=== PATIENT | male | born 1935 | race African-American/Black ===

== ENCOUNTER 2016-09-15 03:56 | Inpatient (IN) | payer OTHER ==
[~2016-09-15] VITALS: Ht 180.3 cm; Wt 88.5 kg
[~2016-09-15 03:56] MED LIST: ASPIRIN81 M4; ATORVASTATIN CA80 M1 PO; ATORVASTATIN CA80 MG PO; FINASTERIDE5 M1 PO; FINASTERIDE5 MG PO; FISH OIL CONCEN1 SGL PO; HYZAAR 12.5 MG-1 TAB PO; K-DUR 20MEQ TA20 MEQ PO; LOSARTAN POTAS100 M1 PO; LOSARTAN-HCTZ 100-12 PO; MULTI VITAMINS1 TAB PO; NORVASC 10MG10 MG PO; NORVASC 5MG TAB5 MG PO; SIMVASTATIN20 MG PO; TAMSULOSIN HYD0.4 MG PO; TENORMIN 12.512.5 MG PO
[2016-09-15 13:10] VITALS: BP 130/88
--- NOTE | 2016-09-15 13:28 | Patient Discharge Instructions ---
Discharge Instructions General Discharge Information You were seen/treated for: carotid stenosis You had these procedures: carotid endarterectomy Watch for these problems: increased pain, increased redness or drainage of wound, increased weakness or slurring of speech Do not soak the wound: Yes No bath, but you may shower: Yes Other wound care: Keep incision clean and dry Diet Recommended Diet: Heart Healthy Activity Activity Self Limited: Yes Acute Coronary Syndrome Inclusion Criteria At DC or during hospital stay patient has or had the following: ACS DIAGNOSIS No Discharge Core Measures Meds if any: Prescribed or Continued at Discharge Meds if any: NOT Prescribed or Continued at Discharge Congestive Heart Failure Inclusion Criteria At DC or during hospital stay patient has or had the following: CHF DIAGNOSIS No Discharge Core Measures Meds if any: Prescribed or Continued at Discharge Meds if any: NOT Prescribed or Continued at Discharge Cerebrovascular accident Inclusion Criteria At DC or during hospital stay patient has or had the following: CVA/TIA Diagnosis No Discharge Core Measures Meds if any: Prescribed or Continued at Discharge Meds if any: NOT Prescribed or Continued at Discharge Venous thromboembolism Inclusion Criteria VTE Diagnosis No VTE Type NONE VTE Confirmed by (Test) NONE Discharge Core Measures - Per Current guidelines, there needs to be overlap - treatment for the first 5 days of Warfarin therapy. - If discharged on Warfarin prior to 5 days of - overlap therapy, the patient will need to be - assessed for post discharge needs including - *Post discharge parental anticoagulation - *Warfarin and/or parental anticoagulation education - *Follow up date to check INR post discharge At least 5 days overlap therapy as Inpatient No Meds if any: Prescribed or Continued at Discharge Note: Overlap Therapy is Warfarin and Anticoagulant Meds if any: NOT Prescribed or Continued at Discharge
--- NOTE | 2016-09-15 13:37 | PN- Vascular Surgery ---
Subjective Subjective: Post op check Awake, alert post op No complaints, pain well controlled Does not sense any decreased sensation or weakness Objective Vital Signs and I&Os VSS General: alert and oriented times three Chest: clear anteriorly bilaterally, RRR Abd: soft, good bs Ext: warm, no edema Neuro: 5/5 LEIGHANN all 4 extremities, positive sensate all 4 ext, no facial droop, no slurring of speech, tongue protrudes in midline Wound: dressed, dry, expected post op edema around incision - does not affect swallow Current Medications: Current Medications Sig/Tammie Start time Last Medication Dose Route Stop Time Status Admin Amlodipine Besylate 10 MG DAILY 09/16 1000 DC PO Amlodipine Besylate 10 MG DAILY 09/16 1000 UNVr PO Aspirin 325 MG DAILY 09/16 1000 DC PO Aspirin 325 MG DAILY 09/16 1000 UNVr PO Atorvastatin Calcium 80 MG 1700 09/16 1700 DC PO Atorvastatin Calcium 80 MG 1700 09/16 1700 UNVr PO Dextrose/Sodium 1,000 ML .Q20H 09/15 1345 UNVr Chloride IV Finasteride 5 MG DAILY 09/16 1000 DC PO Finasteride 5 MG DAILY 09/16 1000 UNVr PO Losartan Potassium 100 MG DAILY 09/16 1000 DC PO Losartan Potassium 100 MG DAILY 09/16 1000 UNVr PO Ondansetron HCl 4 MG Q6P PRN 09/15 1345 UNVr IV Oxycodone/ 1 TAB Q4P PRN 09/15 1345 UNVr Acetaminophen PO Oxycodone/ 2 TAB Q4P PRN 09/15 1345 UNVr Acetaminophen PO Potassium Chloride 20 MEQ DAILY 09/16 1000 DC PO Potassium Chloride 20 MEQ DAILY 09/16 1000 UNVr PO Promethazine HCl 12.5 MG Q6P PRN 09/15 1345 UNVr IV 09/22 1129 Assessment/Plan Assessment/Plan 81 yo male s/p L CEA Good post op course HH diet pain mgmt plan to dc home in am Core Measures/Miscellaneous Venous Thromboembolism VTE Risk Factors: Age > 40, Surgery VTE Contraindications: No Contraindications VTE Diagnosis: No Beta Flakito Is Beta Flakito a Home Med? No Antibiotics Is Patient on Antibiotics? No
[2016-09-15] MEDS ORDERED: TYLENOL EXTRA500 M2 PO (13:38)
--- NOTE | 2016-09-15 13:46 | Admission Core Measures ---
Admission Meds I reviewed the following Meds: Current Medications Sig/Tammie Start time Last Medication Dose Stop Time Status Admin Acetaminophen 500 MG Q6P PRN 09/15 1345 UNVr (Tylenol) Amlodipine Besylate 10 MG DAILY 09/16 1000 UNVr (Norvasc) Aspirin 325 MG DAILY 09/16 1000 UNVr (Aspirin) Atorvastatin Calcium 80 MG 1700 09/16 1700 UNVr (Lipitor) Dextrose/Sodium 1,000 ML .Q20H 09/15 1345 UNVr Chloride (D5W-1/2 Normal Saline 1000ML) Finasteride 5 MG DAILY 09/16 1000 UNVr (Proscar) Losartan Potassium 100 MG DAILY 09/16 1000 UNVr (Cozaar) Ondansetron HCl 4 MG Q6P PRN 09/15 1345 UNVr (Zofran) Oxycodone/ 1 TAB Q4P PRN 09/15 1345 UNVr Acetaminophen (Percocet) Oxycodone/ 2 TAB Q4P PRN 09/15 1345 UNVr Acetaminophen (Percocet) Potassium Chloride 20 MEQ DAILY 09/16 1000 UNVr (K-Dur) Promethazine HCl 12.5 MG Q6P PRN 09/15 1345 UNVr (Phenergen) 09/22 1129 Acute Coronary Syndrome Inclusion Criteria ACS Diagnosis No Inpatient Core Measures LDL Reminder: If No, please order W/I first 24hr of stay Congestive Heart Failure Inclusion Criteria CHF Diagnosis No Cerebrovascular accident Inclusion Criteria CVA/TIA Diagnosis No Inpatient Core Measures Bedside Swallow Eval Reminder: If BSE failed, place ST order Antithrombotic Reminder: Order Antithrombotic Medication by end of day 2 Antithrombotic Reminder: Document Reason Antithrombotic Not ordered by end of day 2 AFIB/Flutter Reminder: If Present, add to problem list AFIB/Flutter Reminder: Order Anticoag Medication for pts with AFIB/Flutter Atherosclerosis Reminder: If Present, add to problem list LDL Reminder: If No, please order W/I first 24hr of stay PT Order Reminder: If No, please order Venous thromboembolism Inpatient Core Measures VTE Risk Factors: Age > 40, Surgery No Mech VTE prophylaxis d/t No contraindications No VTE Pharm Prophylaxis d/t No contraindications Inclusion Criteria - Per Current guidelines, there needs to be overlap - treatment for the first 5 days of Warfarin therapy. - Parenteral Anticoagulation (IV or SC) needs to be - given along with Warfarin therapy. VTE Diagnosis No VTE Type NONE VTE Confirmed by (Test) NONE Problem List As ranked by this Provider includes Assessment & Plan 1. S/P carotid endarterectomy HOME MEDS Home Med List Amlodipine (Norvasc 10MG) 10 MG TAB 1 TAB PO DAILY HTN Aspirin 325 MG TAB 1 TAB PO DAILY HEART HEALTY (Reported) Atorvastatin Calcium 80 MG TABLET 1 TAB PO DAILY CHOLESTEROL (Reported) Finasteride 5 MG TABLET 1 TAB PO DAILY BPH (Reported) Losartan Potassium 100 MG TABLET 1 TAB PO DAILY HTN (Reported) POTASSIUM CHLORIDE (K-Dur) 20 MEQ TAB.ER.PRT 1 TAB PO DAILY SUPPLEMENT ( Reported)
--- NOTE | 2016-09-15 15:09 | Operative Report ---
Operative/Inv Procedure Report Surgery Date: 09/15/16 Name of Procedure: Left carotid thromboendarterectomy with bovine patch angioplasty Pre-Operative Diagnosis: High-grade asymptomatic left carotid stenosis Post-Operative Diagnosis: Same Estimated Blood Loss: less than 50ml Surgeon/Train Conductor: DEA MORALES,NASEEM JOHNSTON MD, JUAN (asst.) Anesthesia: general endotracheal tube Condition: Stable to PACU Operative Indication: 81-year-old male with ultrasound and CAT scan which demonstrates a high-grade left carotid stenosis. Risks benefits and alternatives were explained to the patient including bleeding stroke nerve injury and muscle weakness. He decided to proceed with intervention. Operative/Procedure Note Note: Patient brought to the operating room and laid supine on the table. A timeout was held accordance with hospital policy. Of note the patient was noted to have a high carotid bifurcation on ultrasound and CAT scan and an appropriate resident was not available for the case. Therefore an metallurgical laboratory assistant surgeon was required. Sharp dissection was carried down through subcutaneous tissue along the border of the sternocleidomastoid with a 15 blade and Bovie electrocautery. The tissue was dissected free. The carotid sheath was entered. The common, external and internal carotid artery were circumferentially controlled. Patient was given 5000 units of heparin. The blood pressure was kept elevated and the artery was opened and clamped. Excellent backbleeding was noted. An 11- blade and Valadez scissors were used to open the artery. A [place] elevator was used to remove the plaque. It was passed off the field. Debris was removed from the intima with ring forceps. Saline was used to irrigate the area. A bovine pericardial patch was then sewed on the anterior surface of the artery in a running circumferential manner. It was tied down with 6-0 Prolene. All occluding clamps were removed. Pulsatile flow was noted into the area. Good diastolic flow was noted. 2 interrupted Prolene sutures were used for hemostasis. Gelfoam and thrombin were placed on the wound and artery. 2 our 3-0 Vicryl sutures were used to close the deep tissue and platysma. The skin was closed with megan. He awoke from anesthesia neurologically intact. The sponge, needle and instrument counts were correct. The patient was transported to the recovery room.
[2016-09-16] VITALS: BP 158/100
[2016-09-16 05:00] LABS: ABSOLUTE BASOPHIL COUNT 0 /CUMM (0.0-0.2); ABSOLUTE EOSINOPHIL COUNT 0 /CUMM (0.0-0.7); ABSOLUTE LYMPH COUNT 1.7 /CUMM (1.2-3.4); ABSOLUTE MONOCYTE COUNT 0.6 /CUMM (0.10-0.60); BASOPHIL % 0.3 % (0.0-2.0); EOSINOPHIL % 0.2 % (0-5); HEMATOCRIT 42.7 % (42-52); MEAN CORPUSCULAR HGB 28.1 PG (27.0-31.0); MEAN CORPUSCULAR HGB CONC 33.3 G/DL (33.0-37.0); MEAN CORPUSCULAR VOLUME 84.6 FL (80.0-94.0); MEAN PLATELET VOLUME 8.3 FL (7.4-10.4); PLATELET COUNT 171 /CUMM (130-400); RED BLOOD CELL CT 5.05 /CUMM (4.70-6.10); WHITE BLOOD CELL COUNT 9.4 /CUMM (4.8-10.8)
[2016-09-16 05:05] LABS: GRANULOCYTE % 74.9 % (42.2-75.2)
--- NOTE | 2016-09-16 05:47 | PN- Vascular Surgery ---
Subjective Subjective: pod#1 s/p left cea runs of ventricular ectopy last evening repeat electrolyte panel revealed hypokalemia nad hypomagnesia decreased ectopy with iv repleation denies cp, sob, no n+v with diet or difficulty swallowing does c/o increasing hoarseness with phonation Objective Vital Signs and I&Os Vital Signs Date Time Temp Pulse Resp B/P Pulse O2 O2 Flow FiO2 Ox Delivery Rate 09/16 0400 93 Nasal 1.0L Cannula 09/16 0000 92 Nasal 1.0L Cannula 09/16 0000 98.5 106 17 158/100 92 Nasal 1.0L Cannula 09/15 2056 98 170/108 09/16 1999 96 Nasal 2.0L Cannula 09/15 1310 97 Nasal 3.0L Cannula 09/15 1310 97.6 84 20 130/88 97 Nasal 3.0L Cannula Intake & Output 09/16 0800 09/16 0000 09/15 1600 09/15 0800 09/15 0000 09/14 1600 Intake Total 1330 150 Output Total 725 750 Balance 605 -600 Intake, IV 300 150 Intake, Oral 1030 0 Number 0 0 Bowel Movements Output, Urine 725 750 Patient 195 lb Weight Physical Exam: cv: rrr lungs: clear abd: soft, +bs ext: warm distal cms intact drsg dry, expected non expanding hematoma Assessment/Plan Assessment/Plan vascular stable plan restart all home meds advance diet will d/w dr ledbetter d/c plans likely later today Core Measures/Miscellaneous Venous Thromboembolism VTE Risk Factors: Age > 40, Surgery VTE Contraindications: No Contraindications VTE Diagnosis: No VTE Type: NONE VTE Confirmed by (Test): NONE Beta Flakito Is Beta Flakito a Home Med? No Antibiotics Is Patient on Antibiotics? No
[2016-09-16 08:00] VITALS: BP 130/90
--- NOTE | 2016-09-16 08:08 | Event Note ---
Event Note Event Note: patient seen with Dr Murphy. Patient looks good advised for discharge this morning
--- NOTE | 2016-10-20 17:33 | Surgical Discharge Summary ---
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 Spouse Services at Home: None What is Your Primary Language? Singaporean Review of Systems: Patient denied complaint upon discharge. Physical Exam: Patient was a well-appearing male in no apparent distress. Incision was clean dry and intact upon discharge with no focal deficits. Hospital Course Course Attending Physician: VICKIE MALIN MD Primary Care Physician: PEGGY GRAY MD Hospital Course: 81-year-old male underwent an uncomplicated left carotid thromboendarterectomy. He tolerated the procedure well be discharged home on antiplatelet medication. He may follow up as an outpatient for suture and staple removal. Complications: NONE Allergies: Coded Allergies: NO KNOWN ALLERGIES (09/11/16) Disposition Summary Disposition Principal Diagnosis: Bilateral carotid stenosis Additional Diagnosis: None Discharge Disposition: home or self care Discharge Instructions General Discharge Information Code Status: Full Code Patient's Diet: Cardiac prudent Patient's Activity: No major restrictions. Patient advised not to drive until reevaluated for suture removal. Follow-Up Instructions/Appts: Follow-up in 1-2 weeks Medications at Discharge Discharge Medications: Continue taking these medications: POTASSIUM CHLORIDE (K-Dur) 20 MEQ TAB.ER.PRT 1 Tablet ORAL DAILY Qty = 270 Comments: TAKE 1 TABLET BY MOUTH 3 TIMES A DAY - SIG Obtained From Mariela Last Taken: 05/14/15 Time: 11:00 AM Aspirin (Aspirin*) 81 MG TAB.CHEW Comments: Last Taken: 09/16/16 Time: 929 Amlodipine (Norvasc 10MG) 10 MG TAB 1 Tablet ORAL DAILY Days = 30 Comments: Last Taken: 05/14/15 Time: 4:00 PM Atorvastatin Calcium (Atorvastatin Calcium) 80 MG TABLET 1 Tablet ORAL DAILY Instructions: NIGHTLY Comments: Last Taken: 09/16/16 Time: 0930 Losartan Potassium (Losartan Potassium) 100 MG TABLET 1 Tablet ORAL DAILY Comments: Last Taken: 09/16/16 Time: 929 Finasteride (Finasteride) 5 MG TABLET 1 Tablet ORAL DAILY Instructions: NIGHTLY Comments: Last Taken: 09/16/16 Time: 929 Start taking the following new medications: Acetaminophen (Tylenol Extra Strength) 500 MG TABLET 1 Tablet ORAL EVERY 8 HOURS as needed for pain Qty = 10 No Refills Attending MD Review Statement Attending Statement Attending MD Statement: examined this patient
== END 2016-09-16 10:07 | DRG 39 ==
LOC: ENRESERVDT → ENRESERVTM → SDA 03:56 → CRI 13:10
PROVIDERS: Nurse Practitioner; ADMIT Surgery Vascular Surgery
DX: I65.22 Occlusion and stenosis of left carotid artery (principal); I10 Essential (primary) hypertension; N40.0 Benign prostatic hyperplasia without lower urinary tract symptoms; I70.90 Unspecified atherosclerosis
CPT/HCPCS: CCU; 82436; 88304; J0131; J0360; J1644; J2405; J2550; J3490; J7042

== ENCOUNTER 2016-12-07 23:08 | Emergency (ER) | payer OTHER ==
[~2016-12-07] VITALS: Ht 175.3 cm; Wt 93.0 kg
[~2016-12-07 23:08] MED LIST changes: +TYLENOL EXTRA500 M2 PO
[2016-12-07 23:12] VITALS: BP 154/87
--- NOTE | 2016-12-08 00:16 | ED HAND/WRIST INJURY COMPLAINT ---
History of Present Illness General Chief Complaint: Laceration Procedure Stated Complaint: LEFT HAND RING FINGER LAC Source: patient Exam Limitations: no limitations Vital Signs & Intake/Output Vital Signs & Intake/Output Vital Signs Date Time Temp Pulse Resp B/P B/P Pulse O2 O2 Flow FiO2 Mean Ox Delivery Rate 12/07 2312 97.8 74 18 154/87 99 Room Air ED Intake and Output 12/08 0000 12/07 1200 Intake Total Output Total Balance Patient 205 lb Weight Allergies Coded Allergies: NO KNOWN ALLERGIES (09/11/16) Reconcile Medications Acetaminophen (Tylenol Extra Strength) 500 MG TABLET 1 TAB PO Q8 PRN pain Amlodipine (Norvasc 10MG) 10 MG TAB 1 TAB PO DAILY HTN Aspirin (Aspirin*) 81 MG TAB.CHEW BLOOD THINNER (Reported) Atorvastatin Calcium 80 MG TABLET 1 TAB PO DAILY CHOLESTEROL (Reported) NIGHTLY Finasteride 5 MG TABLET 1 TAB PO DAILY BPH (Reported) NIGHTLY Losartan Potassium 100 MG TABLET 1 TAB PO DAILY HTN (Reported) POTASSIUM CHLORIDE (K-Dur) 20 MEQ TAB.ER.PRT 1 TAB PO DAILY SUPPLEMENT ( Reported) Triage Note: PT STTES THATHE CUT HIS R POINTER FINGER ON METAL CHAIR A FEW HOURS AGO AND IT WONT STOP BLEEDING Triage Nurses Notes Reviewed? yes Occurred: just prior to arrival Duration: minute(s):, constant Timing: single episode today Injury Environment: home Method of Injury: laceration No Modifying Factors: none HPI: 81-year-old male comes into emergency room with laceration to right fourth finger. Patient cut it on a metal chair. Last tetanus shot unknown. Associated bleeding. Patient is on aspirin. Patient comes in for further evaluation. Mild throbbing pain. (JESI ROSARIO) Past History Travel History Traveled to [place] past 21 day No Medical History Any Pertinent Medical History? 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 No (JESI ROSARIO) Review of Systems Review of Systems Constitutional: Reports: no symptoms. EENTM: Reports: no symptoms. Respiratory: Reports: no symptoms. Cardiovascular: Reports: no symptoms. GI: Reports: no symptoms. Genitourinary: Reports: no symptoms. Musculoskeletal: Reports: no symptoms. Skin: Reports: see HPI. Neurological/Psychological: Reports: no symptoms. Hematologic/Endocrine: Reports: see HPI. Immunologic/Allergic: Reports: no symptoms. All Other Systems: Reviewed and Negative (JESI ROSARIO) Physical Exam Physical Exam General Appearance: well developed/nourished, mild distress Head: atraumatic Eyes: Bilateral: normal appearance. Ears, Nose, Throat: normal ENT inspection, hearing grossly normal Neck: normal inspection Cardiovascular/Respiratory: no respiratory distress Back: normal inspection Hand Left: normal inspection Hand Right: 4th finger, 1.5 cm laceration to dorsal finger Neurologic/Tendon: normal sensation, normal motor functions, normal tendon functions, responds to pain, no evidence tendon injury, no pulse deficit Skin: intact, normal color, warm/dry Lymphatic: no anterior cervical demetria (JESI ROSARIO) Progress Differential Diagnosis: cellulitis, contusion, dislocation, felon, fracture, gout, paronychia, septic arthritis, sprain Plan of Care: Current Medications Sig/Tammie Start time Last Medication Dose Stop Time Status Admin Tetanus/Diphtheria 0.5 ML ONCE ONE 12/08 0030 UNVr Toxoids Adsorbed 12/08 0031 (Decavac) Departure Departure Disposition: HOME OR SELF CARE Condition: Stable Clinical Impression Primary Impression: Finger laceration Referrals: ISAAC MORALES,PEGGY Fortune (PCP/Family) Additional Instructions: Return if any concerns worsening symptoms. Keep covered with dry dressing. Return in 7 days for suture removal. Please go over all results of today's visit with your primary care doctor. Contact your primary care doctor to let them know you were here in the emergency room. There may be nonspecific findings which may not be related to your visit today here in the emergency room but may require further evaluation and chronic monitoring by your primary care doctor. If you had a laceration today the chance of foreign body always remains. You should follow-up with your primary care doctor for recheck in 3-5 days for a wound check. If you had an x-ray done there is a chance that a fracture could have been missed on initial read and you should follow-up with your primary care doctor for repeat x-rays if symptoms persist. If your blood pressure was elevated here in the emergency room please have rechecked by her primary care doctor within the next 48 hours by your primary care doctor. If you were prescribed a narcotic here in the emergency room or any type of controlled substances you're not allowed to drive while taking this medication or operate any type of heavy machinery. Narcotics can make you feel lightheaded dizziness nausea and can cause constipation. You may need to garbage pick up man a stool softener. Thank you for choosing [facility] emergency room. Please return to the emergency room immediately if you have any other concerns worsening of symptoms. Departure Forms: Customer Survey General Discharge Information (JESI ROSARIO) PA/APPLICATION SUPPORT Co-Sign Statement Statement: ED Attending supervision documentation- [] I saw and evaluated the patient. I have also reviewed all the pertinent lab results and diagnostic results. I agree with the findings and the plan of care as documented in the PA's/APPLICATION SUPPORT's documentation. [x] I have reviewed the ED Record and agree with the PA's/APPLICATION SUPPORT's documentation. [] Additions or exceptions (if any) to the PAs/APPLICATION SUPPORT's note and plan are summarized below: [] (PURA MORALES,LEXY [place]) Procedures Laceration/Wound Repair Progress: 1.5 cm laceration to dorsum of right fourth finger, irrigated with saline, 1% lidocaine, 2 mL injected, 5. 0 nylon used, 3 sutures placed, sterile technique, Surgicel placed over stitches, patient tolerated procedure well, (JESI ROSARIO)
== END 2016-12-08 00:47 ==
LOC: ERH 23:08
DX: S61.214A Laceration without foreign body of right ring finger without damage to nail, initial encounter (principal); W45.8XXA Other foreign body or object entering through skin, initial encounter; Y92.9 Unspecified place or not applicable; Y93.9 Activity, unspecified
CPT/HCPCS: 90471; 90714